=== PATIENT | female | born 1965 | race Caucasian/White ===

== ENCOUNTER → 2016-07-20 | Outpatient (CLI) | payer OTHER ==
[~2016-07-20] MED LIST: ALPRAZOLAM0.5 MG PO; BENTYL10 MG PO; DIFICID 200 MG200 MG PO; HORMONE COMPOUND; MULTIVITAMINS1 EACH PO; PHENERGAN 25 MG25 M1 PO; PROBIOTIC1 EAC1 PO; ZANTAC300 MG PO; ZYPREXA5 MG PO
[2016-07-20 14:16] LABS: HEMOGLOBIN 15.1 gm/dl (12.3-15.3); RED BLOOD COUNT 4.6 M/UL (4.00-5.10); WHITE BLOOD COUNT 11.3 K/UL (4.5-11.0)
[2016-07-20 14:32] LABS: BUN/CREATININE RATIO 9 (0-10)
== END ==
LOC: OPSV 12:43
PROVIDERS: Internal Medicine Infectious Disease
DX: M19.90 Unspecified osteoarthritis, unspecified site (principal); A04.7 Enterocolitis due to Clostridium difficile; B96.89 Other specified bacterial agents as the cause of diseases classified elsewhere; R19.7 Diarrhea, unspecified
CPT/HCPCS: 36415; 80053; 85025; G0463

== ENCOUNTER 2016-07-24 17:45 | Emergency (ER) | payer OTHER ==
[2016-07-24 18:45] LABS: HEMOGLOBIN 13.7 gm/dl (12.3-15.3); RED BLOOD COUNT 4.21 M/UL (4.00-5.10); WHITE BLOOD COUNT 10.9 K/UL (4.5-11.0)
[2016-07-24 19:06] LABS: BUN/CREATININE RATIO 11 (0-10)
== END 2016-07-25 00:40 | disposition home or self-care (01) ==
LOC: ER1 17:45
PROVIDERS: Emergency Medicine
DX: R10.84 Generalized abdominal pain (principal); R11.2 Nausea with vomiting, unspecified; B96.89 Other specified bacterial agents as the cause of diseases classified elsewhere; F17.210 Nicotine dependence, cigarettes, uncomplicated; Z88.5 Allergy status to narcotic agent; Z90.49 Acquired absence of other specified parts of digestive tract
CPT/HCPCS: 36415; 80053; 81001; 82550; 82553; 83605; 83690; 83874; 84484; 85025; 87086; 96361; 96374; 96375; 96376; 99284; J2270; J2405; J7050; Q9962

== ENCOUNTER → 2016-08-18 | Outpatient (CLI) | payer OTHER ==
[2016-08-18 14:03] LABS: HEMOGLOBIN 14.6 gm/dl (12.3-15.3); RED BLOOD COUNT 4.45 M/UL (4.00-5.10); WHITE BLOOD COUNT 11.8 K/UL (4.5-11.0)
[2016-08-18 14:18] LABS: BUN/CREATININE RATIO 13 (0-10)
== END ==
LOC: LAB 13:23
PROVIDERS: Family Medicine
DX: K52.9 Noninfective gastroenteritis and colitis, unspecified (principal); R20.2 Paresthesia of skin
CPT/HCPCS: 36415; 80053; 82607; 85025; 87045; 87046; 89055

== ENCOUNTER → 2016-09-17 | Outpatient (CLI) | payer OTHER | LOC: LBRF 12:35 | DX: K52.9 Noninfective gastroenteritis and colitis, unspecified (principal); R10.9 Unspecified abdominal pain ==

== ENCOUNTER → 2016-10-27 | Outpatient (CLI) | payer OTHER | LOC: LBRF 13:09 | DX: K52.9 Noninfective gastroenteritis and colitis, unspecified (principal); B96.89 Other specified bacterial agents as the cause of diseases classified elsewhere ==

== ENCOUNTER 2017-02-01 11:19 | Emergency (ER) | payer OTHER ==
[2017-02-01 13:26] LABS: HEMOGLOBIN 15.2 gm/dl (12.3-15.3); RED BLOOD COUNT 4.64 M/UL (4.00-5.10); WHITE BLOOD COUNT 13.8 K/UL (4.5-11.0)
[2017-02-01 13:52] LABS: BUN/CREATININE RATIO 11 (0-10)
== END 2017-02-01 15:42 | disposition home or self-care (01) ==
LOC: ER1 11:19
PROVIDERS: Emergency Medicine
DX: K57.92 Diverticulitis of intestine, part unspecified, without perforation or abscess without bleeding (principal); R91.1 Solitary pulmonary nodule; F17.200 Nicotine dependence, unspecified, uncomplicated; Z88.5 Allergy status to narcotic agent
CPT/HCPCS: 36415; 80053; 81001; 83690; 85025; 96374; 96375; 99284; J2270; J2405; J7050; Q9962

== ENCOUNTER → 2020-05-28 | Outpatient (CLI) | payer OTHER ==
[~2020-05-28] MED LIST changes: +AMBIEN5 MG PO; +AUGMENTIN 875-1 EACH PO; +CITRATE OF MAG296 ML PO; +COLACE 100MG C100 MG PO; +CYCLOBENZAPRINE10 MG PO; +DIPHENOXYLATE-1 EACH PO; +ELIQUIS2.5 MG PO; +ENOXAPARIN40 MG/0.4 SC; +FLAGYL500 MG PO; +GOLYTELY 40004000 ML PO; +HARD NAILS2500 MCG PO; +HYDROCODON-ACE1 EAC4 PO; +HYDROXYZINE PA100 MG PO; +IMODIUM CAP 2 MG2 MG PO; +MULTIPLE VITAM1 EAC1 PO; +ONDANSETRON2 MG/1 ML IV; +OXYCODONE HCL5 MG PO; +PAXIL10 MG PO; +PREDNISONE 50 M50 MG PO; +QUETIAPINE FUM100 MG PO; +TYLENOL 8 HOUR650 MG PO; +TYLENOL EXTRA500 MG PO; +XANAX2 MG PO; +ZOFRAN 4 MG TAB4 MG PO; +ZOFRAN4 MG PO; +ZYPREXA20 MG PO
== END ==
LOC: EMI 15:14
DX: M54.5 Low back pain (principal); M25.551 Pain in right hip; S22.089A Unspecified fracture of T11-T12 vertebra, initial encounter for closed fracture; M25.78 Osteophyte, vertebrae; M48.04 Spinal stenosis, thoracic region; M51.26 Other intervertebral disc displacement, lumbar region
CPT/HCPCS: 72158; A9577

== ENCOUNTER → 2020-06-13 | Outpatient (CLI) | payer OTHER | LOC: KOH-I 06-12 14:30 → EMI 16:30 | DX: M25.551 Pain in right hip (principal); M70.61 Trochanteric bursitis, right hip; R93.6 Abnormal findings on diagnostic imaging of limbs | CPT/HCPCS: 73721 ==

== ENCOUNTER 2020-06-18 07:41 | Inpatient (IN) | payer OTHER ==
[~2020-06-18] VITALS: Ht 170.2 cm; Wt 72.6 kg
[~2020-06-18 07:41] MED LIST changes: -AMBIEN5 MG PO; -CYCLOBENZAPRINE10 MG PO; -DIPHENOXYLATE-1 EACH PO; -ELIQUIS2.5 MG PO; -ENOXAPARIN40 MG/0.4 SC; -HARD NAILS2500 MCG PO; -HYDROCODON-ACE1 EAC4 PO; -HYDROXYZINE PA100 MG PO; -IMODIUM CAP 2 MG2 MG PO; -MULTIPLE VITAM1 EAC1 PO; -ONDANSETRON2 MG/1 ML IV; -OXYCODONE HCL5 MG PO; -PAXIL10 MG PO; -QUETIAPINE FUM100 MG PO; -TYLENOL 8 HOUR650 MG PO; -TYLENOL EXTRA500 MG PO; -XANAX2 MG PO; -ZOFRAN 4 MG TAB4 MG PO; -ZYPREXA20 MG PO
[2020-06-18 08:43] LABS: HEMOGLOBIN 12.6 gm/dl (12.3-15.3); RED BLOOD COUNT 4.42 M/UL (4.00-5.10); WHITE BLOOD COUNT 9.2 K/UL (4.5-11.0)
[2020-06-18 08:57] LABS: BUN/CREATININE RATIO 6 (0-10)
[2020-06-18] MEDS ORDERED: MULTIPLE VITAM1 EAC1 PO (09:20)
[2020-06-18] MEDS ORDERED: HARD NAILS2500 MCG PO (09:21)
[2020-06-18] MEDS ORDERED: TYLENOL EXTRA500 MG PO (09:21)
[2020-06-18] MEDS ORDERED: ZYPREXA20 MG PO (09:22)
[2020-06-18] MEDS ORDERED: DIPHENOXYLATE-1 EACH PO (09:23)
[2020-06-18] MEDS ORDERED: IMODIUM CAP 2 MG2 MG PO (09:24)
[2020-06-18] MEDS ORDERED: QUETIAPINE FUM100 MG PO (09:24)
[2020-06-18] MEDS ORDERED: HYDROXYZINE PA100 MG PO (09:25)
[2020-06-18] MEDS ORDERED: ZOFRAN 4 MG TAB4 MG PO (09:26)
[2020-06-18] MEDS ORDERED: CYCLOBENZAPRINE10 MG PO (09:26)
[2020-06-18] MEDS ORDERED: AMBIEN5 MG PO (09:26)
[2020-06-18] MEDS ORDERED: XANAX2 MG PO (09:27)
[2020-06-18 20:59] LABS: BUN/CREATININE RATIO 15 (0-10)
[2020-06-18 21:24] LABS: HEMOGLOBIN 13.2 gm/dl (12.3-15.3); RED BLOOD COUNT 4.52 M/UL (4.00-5.10)
[2020-06-19 03:15] LABS: HEMOGLOBIN 11.5 gm/dl (12.3-15.3)
[2020-06-19 03:23] LABS: RED BLOOD COUNT 3.84 M/UL (4.00-5.10)
[2020-06-19 03:30] LABS: BUN/CREATININE RATIO 16 (0-10)
[2020-06-19] MEDS ORDERED: ENOXAPARIN40 MG/0.4 SC (09:03)
== END 2020-06-19 15:51 | disposition home health service (06) | DRG 478 ==
LOC: OR 07:41 → M/S 14:48
PROVIDERS: ADMIT Orthopaedic Surgery
PROC: 0PU43JZ Supplement Thoracic Vertebra with Synthetic Substitute, Percutaneous Approach (ICD-10-PCS; 2020-06-18)
PROC: 0QH606Z Insertion of Intramedullary Internal Fixation Device into Right Upper Femur, Open Approach (ICD-10-PCS; 2020-06-18)
PROC: 0PB43ZX Excision of Thoracic Vertebra, Percutaneous Approach, Diagnostic (ICD-10-PCS; principal; 2020-06-18 11:30)
DX: S72.144A Nondisplaced intertrochanteric fracture of right femur, initial encounter for closed fracture (principal); M80.08XA Age-related osteoporosis with current pathological fracture, vertebra(e), initial encounter for fracture; Z91.81 History of falling; R29.6 Repeated falls; Z79.899 Other long term (current) drug therapy; Z88.5 Allergy status to narcotic agent
CPT/HCPCS: 36415; 71045; 73502; 76000; 80048; 81001; 85027; 85610; 85730; 86850; 86900; 86901; 93005; 97161; 97166; 97535; C1713; J0690; J1100; J1170; J1650; J2001; J2250; J2405; J2704; J2710; J2795; J3010; J3370; J7030; J7120; Q9962

== ENCOUNTER 2020-08-17 10:11 | Emergency (ER) | payer OTHER ==
[~2020-08-17 10:11] MED LIST changes: +AMBIEN5 MG PO; +CYCLOBENZAPRINE10 MG PO; +DIPHENOXYLATE-1 EACH PO; +ENOXAPARIN40 MG/0.4 SC; +HARD NAILS2500 MCG PO; +HYDROXYZINE PA100 MG PO; +IMODIUM CAP 2 MG2 MG PO; +MULTIPLE VITAM1 EAC1 PO; +QUETIAPINE FUM100 MG PO; +TYLENOL EXTRA500 MG PO; +XANAX2 MG PO; +ZOFRAN 4 MG TAB4 MG PO; +ZYPREXA20 MG PO
[2020-08-17 11:49] LABS: HEMOGLOBIN 12.2 gm/dl (12.3-15.3); RED BLOOD COUNT 3.91 M/UL (4.00-5.10); WHITE BLOOD COUNT 10.2 K/UL (4.5-11.0)
[2020-08-17 12:19] LABS: BUN/CREATININE RATIO 6 (0-10)
[2020-08-17] MEDS ORDERED: HYDROCODON-ACE1 EAC4 PO (16:04)
== END 2020-08-17 16:08 | disposition home or self-care (01) ==
LOC: ER1 10:11
PROVIDERS: Student in an Organized Health Care Education/Training Program
DX: M79.604 Pain in right leg (principal); M79.89 Other specified soft tissue disorders; J44.9 Chronic obstructive pulmonary disease, unspecified; Z90.49 Acquired absence of other specified parts of digestive tract; F17.210 Nicotine dependence, cigarettes, uncomplicated; Z88.5 Allergy status to narcotic agent; Z88.1 Allergy status to other antibiotic agents; Z79.899 Other long term (current) drug therapy; Z90.710 Acquired absence of both cervix and uterus
CPT/HCPCS: 73502; 73552; 73562; 80053; 81001; 82550; 82553; 83880; 84703; 85025; 96374; 99283; J2405

== ENCOUNTER → 2020-08-19 | Outpatient (CLI) | payer OTHER ==
[~2020-08-19] MED LIST changes: +ELIQUIS2.5 MG PO; +HYDROCODON-ACE1 EAC4 PO; +ONDANSETRON2 MG/1 ML IV; +OXYCODONE HCL5 MG PO; +PAXIL10 MG PO; +TYLENOL 8 HOUR650 MG PO
== END ==
LOC: US 13:05
DX: M79.89 Other specified soft tissue disorders (principal); R22.42 Localized swelling, mass and lump, left lower limb
CPT/HCPCS: 93971

== ENCOUNTER → 2020-08-29 | Outpatient (CLI) | payer OTHER | LOC: CT 09:30 | DX: M89.8X5 Other specified disorders of bone, thigh (principal); R19.7 Diarrhea, unspecified; B37.9 Candidiasis, unspecified | CPT/HCPCS: 73702; Q9967 ==

== ENCOUNTER → 2020-09-19 | Outpatient (CLI) | payer OTHER | LOC: KOH-I 08:00 | DX: T84.84XA Pain due to internal orthopedic prosthetic devices, implants and grafts, initial encounter (principal); S73.101A Unspecified sprain of right hip, initial encounter | CPT/HCPCS: 73721 ==

== ENCOUNTER 2020-09-27 11:15 | Inpatient (IN) | payer OTHER ==
[~2020-09-27] VITALS: Ht 170.2 cm; Wt 72.6 kg
[~2020-09-27 11:15] MED LIST changes: -ELIQUIS2.5 MG PO; -ONDANSETRON2 MG/1 ML IV; -OXYCODONE HCL5 MG PO; -PAXIL10 MG PO; -TYLENOL 8 HOUR650 MG PO
[2020-09-27 14:41] LABS: HEMOGLOBIN 12.1 gm/dl (12.3-15.3); RED BLOOD COUNT 3.95 M/UL (4.00-5.10); WHITE BLOOD COUNT 18.1 K/UL (4.5-11.0)
[2020-09-27 15:01] LABS: BUN/CREATININE RATIO 5 (0-10)
[2020-09-27] MEDS ORDERED: ONDANSETRON2 MG/1 ML IV (19:19)
[2020-09-27] MEDS ORDERED: PAXIL10 MG PO (19:29)
[2020-09-28 04:50] LABS: HEMOGLOBIN 11.3 gm/dl (12.3-15.3); RED BLOOD COUNT 3.73 M/UL (4.00-5.10); WHITE BLOOD COUNT 13.5 K/UL (4.5-11.0)
[2020-09-28 05:15] LABS: BUN/CREATININE RATIO 6 (0-10)
[2020-09-28 11:15] LABS: RED BLOOD COUNT 3.95 M/UL (4.00-5.10)
[2020-09-28 11:16] LABS: WHITE BLOOD COUNT 22.4 K/UL (4.5-11.0)
[2020-09-28 12:04] LABS: BUN/CREATININE RATIO 4 (0-10)
[2020-09-28 13:00] LABS: HEMOGLOBIN 12.4 gm/dl (12.3-15.3); RED BLOOD COUNT 4.06 M/UL (4.00-5.10); WHITE BLOOD COUNT 22.4 K/UL (4.5-11.0)
--- NOTE | 2020-09-28 14:09 | NUR ---
1142 PT RETURNED FROM SURGERY V/S T-97.5, HR - 82, O2 SAT 97% ON 2L/NC, BP 148/75. PT ALERT AND ORIENTED X 3, GAG REFLEX INTACT. LEFT HIP WITH TWO PERINIO DRESSING CLEAN DRY AND INCTACT. PEDAL PULSE 2+, PT CAN WIGGLE TOES. C/O PAIN 01/30. Chris ROSADO RN
[2020-09-29 06:57] LABS: RED BLOOD COUNT 3.68 M/UL (4.00-5.10)
[2020-09-29 07:17] LABS: WHITE BLOOD COUNT 15.7 K/UL (4.5-11.0)
[2020-09-29 07:21] LABS: BUN/CREATININE RATIO 10 (0-10)
[2020-09-30 06:29] LABS: HEMOGLOBIN 11.3 gm/dl (12.3-15.3); RED BLOOD COUNT 3.76 M/UL (4.00-5.10); WHITE BLOOD COUNT 12.9 K/UL (4.5-11.0)
[2020-09-30 06:59] LABS: BUN/CREATININE RATIO 20 (0-10)
--- NOTE | 2020-09-30 23:34 | NUR ---
@2215 CAME INTO ROOM AND NOTICED NG STAT LOCK OFF OF TUBE, RE-APPLIED STAT LOCK, TUBE NO LONGER DRAINING TO SUCTION, LISTENED FOR EPIGASTRIC AIR WITH STETHOSCOPE, COULD NOT HEAR ANY AIR SO ADVANCED TUBE UNTIL AIR WAS HEARD OVER EPIGASTRIC AREA AND STOMACH CONTENT RETURNED IN SUCTION TUBING, NOTIFIED MD AND RECIEVED ORDER FOR CHEST X-RAY TO CONFIRM PLACEMENT
[2020-10-01 03:31] LABS: HEMOGLOBIN 10.6 gm/dl (12.3-15.3); RED BLOOD COUNT 3.52 M/UL (4.00-5.10); WHITE BLOOD COUNT 12.6 K/UL (4.5-11.0)
[2020-10-01 03:59] LABS: BUN/CREATININE RATIO 22 (0-10)
--- NOTE | 2020-10-01 10:56 | NUR ---
REQUEST TO SEE PATIENT R/T PATIENT COMPLAINTS OF SICK OF HER STOMACH.
--- NOTE | 2020-10-01 11:33 | NUR ---
left message over the phone of dr. thibodeaux r/t to patient condition.
--- NOTE | 2020-10-01 11:40 | NUR ---
PATIENT SEEN PATIENT AND WILL ORDER MEDICINE
--- NOTE | 2020-10-01 12:18 | NUR ---
DR. BENJAMIN SEEN PATIENT AND RECEIVED ORDER
--- NOTE | 2020-10-02 03:05 | NUR ---
10/01/201919 SOME TREMORS NOTED TO [facility].
[2020-10-02 03:18] LABS: HEMOGLOBIN 10.5 gm/dl (12.3-15.3); RED BLOOD COUNT 3.48 M/UL (4.00-5.10)
[2020-10-02 03:55] LABS: BUN/CREATININE RATIO 18 (0-10)
[2020-10-03 03:41] LABS: HEMOGLOBIN 11.3 gm/dl (12.3-15.3); RED BLOOD COUNT 3.73 M/UL (4.00-5.10); WHITE BLOOD COUNT 13.7 K/UL (4.5-11.0)
[2020-10-03 04:04] LABS: BUN/CREATININE RATIO 16 (0-10)
[2020-10-04 00:51] LABS: HEMOGLOBIN 10.5 gm/dl (12.3-15.3); RED BLOOD COUNT 3.51 M/UL (4.00-5.10); WHITE BLOOD COUNT 11.3 K/UL (4.5-11.0)
[2020-10-04 01:06] LABS: BUN/CREATININE RATIO 10 (0-10)
[2020-10-05 05:59] LABS: RED BLOOD COUNT 3.67 M/UL (4.00-5.10); WHITE BLOOD COUNT 12.9 K/UL (4.5-11.0)
[2020-10-05 06:20] LABS: BUN/CREATININE RATIO 8 (0-10)
--- NOTE | 2020-10-05 19:21 | NUR ---
PATIENT STATES SHE HAS RASH ON BACK THAT IS NEW, PHYSICIAN IS AWARE SAID SHE WOULD TAKE A LOOK AT IT.
[2020-10-06 04:18] LABS: HEMOGLOBIN 11.3 gm/dl (12.3-15.3); RED BLOOD COUNT 3.81 M/UL (4.00-5.10); WHITE BLOOD COUNT 12.7 K/UL (4.5-11.0)
[2020-10-06 04:37] LABS: BUN/CREATININE RATIO 7 (0-10)
--- NOTE | 2020-10-06 10:16 | NUR ---
CALLED PROVIDER TO INFORM THEM PATIENT STATES SHE DOESN'T WANT TO DO THE IN AND OUT CATH Q6 HOURS ORDERED. SHE STATES IT IS PAINFUL. SHE WOULD LIKE TO HAVE A GUTIERREZ PLACED, AND DO BLADDER TRAINING UNTIL SHE IS ABLE TO VOID ON HER OWN.
[2020-10-07 04:23] LABS: HEMOGLOBIN 11.5 gm/dl (12.3-15.3); RED BLOOD COUNT 3.85 M/UL (4.00-5.10); WHITE BLOOD COUNT 11.2 K/UL (4.5-11.0)
[2020-10-07 04:39] LABS: BUN/CREATININE RATIO 6 (0-10)
--- NOTE | 2020-10-07 05:14 | NUR ---
PT REFUSED BOTH DOSES OF ZOSYN AT BEGINNING OF SHIFT, STATED THAT SHE SPOKE TO THE DOCTOR ABOUT IT. PATIENT EDUCATED ABOUT IMPORTANCE OF CONTINUEING ANITBIOTIC THERAPY BUT SAID NO- SHE CAN'T HANDLE BEING SICK FROM IT.
[2020-10-08 06:51] LABS: HEMOGLOBIN 11.7 gm/dl (12.3-15.3); RED BLOOD COUNT 3.89 M/UL (4.00-5.10); WHITE BLOOD COUNT 11.3 K/UL (4.5-11.0)
[2020-10-08 07:14] LABS: BUN/CREATININE RATIO 6 (0-10)
[2020-10-10 04:52] LABS: HEMOGLOBIN 10.9 gm/dl (12.3-15.3); RED BLOOD COUNT 3.68 M/UL (4.00-5.10); WHITE BLOOD COUNT 10.5 K/UL (4.5-11.0)
[2020-10-10 07:54] LABS: BUN/CREATININE RATIO 9 (0-10)
[2020-10-10] MEDS ORDERED: OXYCODONE HCL5 MG PO (11:12)
[2020-10-10] MEDS ORDERED: TYLENOL 8 HOUR650 MG PO (11:12)
[2020-10-10] MEDS ORDERED: XANAX2 MG PO (11:12)
--- NOTE | 2020-10-10 18:47 | NUR ---
SPOKE WITH OFELIA VARELA ( ) AT [facility]. SHE IS STILL AWAITING APPROVAL FROM [facility]. SPOKE WITH NASIR ( ) FROM [facility] AND PT REPORT FROM TODAY FAXED TO PER HIS REQUEST. REPORT CALLED TO DAVIDE @ [facility] PER OFELIA'S REQUEST. WILL HOLD PT UNTIL INSURANCE AUTH OBTAINED.
--- NOTE | 2020-10-10 20:29 | NUR ---
2004 [facility] CALLED ME TO LET ME KNOW THAT THE PATIENT'S INSURANCE HAD BEEN APPROVED FOR TRANSFER TO HER FACILITY. PATIENT IS GOING TO BE TRAVELING BY PRIVATE AUTOMOBILE TO THE FACILITY AND DAY SHIFT RN LET ME KNOW THAT HER MOTHER IS SUPPOSED TO BE THE ONE TO TAKE HER WHEN HER INSURANCE APPROVED THE FACILITY. 2009 AFTER REVIEWING PATIENT'S CHART, THERE IS NO PHONE NUMBER FOR HER MOTHER AVAILABLE. I ASKED THE PATIENT FOR HER MOTHER'S PHONE NUMBER AND SHE GAVE ME [phone] BUT SHE EXPRESSED THAT SHE WOULD NOT BE ABLE TO DRIVE RIGHT NOW CONSIDERING IT WAS ALMOST DARK AND HER MOTHER WAS 78. PATIENT ALSO EXPRESSED THAT HER MOTHER WOULD BE UPSET FOR SOMEONE CALLING HER THIS LATE. I EXPLAINED TO THE PATIENT THAT WITH IT BEING TUESDAY EVENING, IF WE DID NOT GET HER TO THE FACILITY [facility], SHE WOULD PROBABLY BE HERE UNTIL TUESDAY AND SHE MAY OR MAY NOT HAVE A BED. PATIENT STATED THIS WAS FINE. I ASKED THE PATIENT IF THERE WAS ANYONE ELSE THAT I COULD CALL OR ANY OTHER NUMBER TO REACH HER MOTHER AND SHE STATED NO FOR BOTH OF THOSE. SHE SAID SHE HAD A FIANCE BUT HE WAS OUT OF TOWN FOR THE WEEKEND AND WOULD NOT BE BACK UNTIL TUESDAY. 2019 NOTIFIED KELSIE KNOCKOUT MACHINE OPERATOR OF THE SITUATION. KELSIE STATED THAT THE PATIENT WOULD NOT BE A CANDIDATE FOR A CAB DUE TO HER MEDICAL CONDITION AND THAT THERE WASN'T REALLY ANYTHING WE COULD DO AT THE MOMENT TO GET HER TO THE FACILITY IF HER MOM OR SOMEONE ELSE WOULD NOT BE ABLE TO COME GET HER. DR DODD HAS BEEN AWARE OF THE SITUATION WITH THIS PATIENT'S DISCHARGE EARLIER IN THE DAY. 2026 TRIED TO NOTIFY DAVIDE ADMISSIONS NURSE AT [facility] OF THE SITUATION, NO ANSWER. WILL ATTEMPT TO CALL BACK LATER TO GIVE AN UPDATE THAT THE PATIENT WILL NOT BE COMING TO [facility].
[2020-10-11 06:54] LABS: BUN/CREATININE RATIO 9 (0-10)
[2020-10-11] MEDS ORDERED: ELIQUIS2.5 MG PO (14:44)
[2020-10-11] MEDS ORDERED: ZOFRAN 4 MG TAB4 MG PO (16:20)
== END 2020-10-11 17:03 | disposition home health service (06) | DRG 480 ==
LOC: ER1 11:15 → CDU 14:46 → M/S 14:46
PROVIDERS: Internal Medicine; Orthopaedic Surgery; Physician Assistant; Physician Assistant Medical; ADMIT Internal Medicine
PROC: 0QS706Z Reposition Left Upper Femur with Intramedullary Internal Fixation Device, Open Approach (ICD-10-PCS; principal; 2020-09-28 10:10)
DX: M80.052A Age-related osteoporosis with current pathological fracture, left femur, initial encounter for fracture (principal); J69.0 Pneumonitis due to inhalation of food and vomit; K56.7 Ileus, unspecified; F13.20 Sedative, hypnotic or anxiolytic dependence, uncomplicated; J90 Pleural effusion, not elsewhere classified; Z20.822 Contact with and (suspected) exposure to COVID-19; E88.09 Other disorders of plasma-protein metabolism, not elsewhere classified; F41.9 Anxiety disorder, unspecified; L74.0 Miliaria rubra; K56.41 Fecal impaction; J44.9 Chronic obstructive pulmonary disease, unspecified; I10 Essential (primary) hypertension; R33.9 Retention of urine, unspecified; E87.6 Hypokalemia; F17.210 Nicotine dependence, cigarettes, uncomplicated; R04.0 Epistaxis; Z90.49 Acquired absence of other specified parts of digestive tract; Z79.01 Long term (current) use of anticoagulants; Z90.710 Acquired absence of both cervix and uterus; Z88.8 Allergy status to other drugs, medicaments and biological substances; Z88.6 Allergy status to analgesic agent; Z82.49 Family history of ischemic heart disease and other diseases of the circulatory system; Z83.3 Family history of diabetes mellitus
CPT/HCPCS: 36415; 51702; 71045; 71046; 73502; 73552; 73700; 74018; 74250; 76000; 80048; 80053; 81001; 83735; 84100; 84132; 85007; 85025; 85027; 85610; 86850; 86900; 86901; 87040; 87081; 87086; 88342; 93005; 94664; 94760; 96374; 97110; 97110-GP-CQ; 97116-GP-CQ; 97162; 97166; 97530; 97530-GP-CQ; 97535; 99284; C1713; C9113; J0171; J0360; J0690; J1100; J1650; J2001; J2060; J2250; J2270; J2405; J2543; J2550; J2704; J2765; J2795; J3010; J3480; J7030; J7050; J7120; P9047; Q9963; Q9967; U0002

== ENCOUNTER 2021-01-31 12:03 | Emergency (ER) | payer OTHER ==
[~2021-01-31 12:03] MED LIST changes: +ELIQUIS2.5 MG PO; +ONDANSETRON2 MG/1 ML IV; +OXYCODONE HCL5 MG PO; +PAXIL10 MG PO; +TYLENOL 8 HOUR650 MG PO
[2021-01-31 14:42] LABS: HEMOGLOBIN 12.4 gm/dl (12.3-15.3); RED BLOOD COUNT 4.3 M/UL (4.00-5.10); WHITE BLOOD COUNT 8.4 K/UL (4.5-11.0)
[2021-01-31 15:01] LABS: BUN/CREATININE RATIO 6 (0-10)
== END 2021-01-31 15:33 | disposition home or self-care (01) ==
LOC: ER1 12:03
PROVIDERS: Emergency Medicine
DX: M54.5 Low back pain (principal); J44.9 Chronic obstructive pulmonary disease, unspecified; F17.210 Nicotine dependence, cigarettes, uncomplicated; Z90.49 Acquired absence of other specified parts of digestive tract; Z90.710 Acquired absence of both cervix and uterus
CPT/HCPCS: 72131; 72170; 73552; 80053; 81001; 85025; 87086; 99284

== ENCOUNTER → 2021-02-06 | Outpatient (CLI) | payer OTHER ==
[2021-02-06 10:31] LABS: BUN/CREATININE RATIO 6 (0-10)
== END ==
LOC: US 09:36 → ECHO 12:30
PROVIDERS: Internal Medicine Cardiovascular Disease
DX: R60.9 Edema, unspecified (principal); M79.605 Pain in left leg; M79.604 Pain in right leg
CPT/HCPCS: ECHO; 36415; 80053; 93306; 93925; 93970

== ENCOUNTER 2021-03-21 09:06 | Emergency (ER) | payer OTHER ==
[2021-03-21 09:40] LABS: HEMOGLOBIN 12.1 gm/dl (12.3-15.3); RED BLOOD COUNT 4.01 M/UL (4.00-5.10); WHITE BLOOD COUNT 13.7 K/UL (4.5-11.0)
[2021-03-21 10:10] LABS: BUN/CREATININE RATIO 7 (0-10)
[2021-03-21] MEDS ORDERED: PHENERGAN 25 MG25 M1 PO (15:04)
[2021-03-21] MEDS ORDERED: HYDROCODON-ACE1 EAC4 PO (15:04)
[2021-03-21] MEDS ORDERED: AUGMENTIN 875-1 EACH PO (15:04)
== END 2021-03-21 15:19 | disposition home or self-care (01) ==
LOC: ER1 09:06
PROVIDERS: Student in an Organized Health Care Education/Training Program
DX: I88.0 Nonspecific mesenteric lymphadenitis (principal); K65.1 Peritoneal abscess; R11.2 Nausea with vomiting, unspecified; J44.9 Chronic obstructive pulmonary disease, unspecified; Z88.8 Allergy status to other drugs, medicaments and biological substances; Z88.6 Allergy status to analgesic agent; Z87.891 Personal history of nicotine dependence
CPT/HCPCS: 80053; 81001; 83690; 85025; 96374; 96375; 96376; 99284; J0696; J2270; J2405; Q9967

== ENCOUNTER → 2021-08-07 | Outpatient (CLI) | payer OTHER | LOC: KOH-I 12:32 | DX: M54.50 Low back pain, unspecified (principal); M47.816 Spondylosis without myelopathy or radiculopathy, lumbar region | CPT/HCPCS: 72100 ==

== ENCOUNTER 2021-09-26 09:02 | Emergency (ER) | payer OTHER ==
[2021-09-26 10:22] LABS: HEMOGLOBIN 15.4 gm/dl (12.3-15.3); RED BLOOD COUNT 5.03 M/UL (4.00-5.10); WHITE BLOOD COUNT 5.2 K/UL (4.5-11.0)
[2021-09-26 10:56] LABS: BUN/CREATININE RATIO 14 (0-10)
[2021-09-26] MEDS ORDERED: HYDROCODON-ACE1 EAC2 PO (14:57)
== END 2021-09-26 18:04 | disposition home or self-care (01) ==
LOC: ER1 09:02
PROVIDERS: Emergency Medicine
DX: S22.41XA Multiple fractures of ribs, right side, initial encounter for closed fracture (principal); S22.20XA Unspecified fracture of sternum, initial encounter for closed fracture; S32.019A Unspecified fracture of first lumbar vertebra, initial encounter for closed fracture; S32.029A Unspecified fracture of second lumbar vertebra, initial encounter for closed fracture; F17.200 Nicotine dependence, unspecified, uncomplicated; I10 Essential (primary) hypertension; V49.40XA Driver injured in collision with unspecified motor vehicles in traffic accident, initial encounter; Y92.410 Unspecified street and highway as the place of occurrence of the external cause
CPT/HCPCS: 70450; 71260; 72125; 80053; 81001; 82550; 82553; 84484; 85025; 93005; 96374; 96375; 96376; 99284; J2270; J2405; Q9967

== ENCOUNTER → 2021-11-30 | Outpatient (CLI) | payer OTHER ==
[~2021-11-30] MED LIST changes: +HYDROCODON-ACE1 EAC2 PO
== END ==
LOC: KOH-I 10:46
DX: M54.50 Low back pain, unspecified (principal); R06.02 Shortness of breath; M47.814 Spondylosis without myelopathy or radiculopathy, thoracic region
CPT/HCPCS: 71046; 72100

== ENCOUNTER 2021-12-16 11:25 | Inpatient (IN) | payer OTHER ==
[~2021-12-16] VITALS: Ht 167.6 cm; Wt 90.0 kg
[2021-12-16 12:07] LABS: RED BLOOD COUNT 4.4 M/UL (4.00-5.10); WHITE BLOOD COUNT 14.9 K/UL (4.5-11.0)
== END 2021-12-16 19:04 | disposition left against medical advice (07) | DRG 871 ==
LOC: ER1 11:25 → CDU 15:38 → PROG CARE 17:12
PROVIDERS: Family Medicine; ADMIT Internal Medicine
PROC: 3E03329 Introduction of Other Anti-infective into Peripheral Vein, Percutaneous Approach (ICD-10-PCS; principal; 2021-12-16)
PROC: 5A09357 Assistance with Respiratory Ventilation, Less than 24 Consecutive Hours, Continuous Positive Airway Pressure (ICD-10-PCS; 2021-12-16)
DX: A41.9 Sepsis, unspecified organism (principal); J18.9 Pneumonia, unspecified organism; J96.01 Acute respiratory failure with hypoxia; Z20.822 Contact with and (suspected) exposure to COVID-19; J96.02 Acute respiratory failure with hypercapnia; M62.82 Rhabdomyolysis; N17.9 Acute kidney failure, unspecified; R65.20 Severe sepsis without septic shock; Z96.698 Presence of other orthopedic joint implants; F17.210 Nicotine dependence, cigarettes, uncomplicated; M25.551 Pain in right hip; W18.30XA Fall on same level, unspecified, initial encounter; M81.0 Age-related osteoporosis without current pathological fracture; J44.9 Chronic obstructive pulmonary disease, unspecified; Z53.21 Procedure and treatment not carried out due to patient leaving prior to being seen by health care provider; F41.9 Anxiety disorder, unspecified; Z87.19 Personal history of other diseases of the digestive system; Z90.49 Acquired absence of other specified parts of digestive tract; Z90.710 Acquired absence of both cervix and uterus; Z93.3 Colostomy status; Z88.8 Allergy status to other drugs, medicaments and biological substances; Z88.6 Allergy status to analgesic agent
CPT/HCPCS: 36600; 51701; 70450; 71045; 73502; 80053; 80307; 81001; 82550; 82553; 82803; 83605; 83690; 83735; 84439; 84443; 84484; 85025; 85610; 86850; 86900; 86901; 87040; 87086; 93005; 94640; 94660; 94760; 96361; 96374; 96375; 99285; G0480; J0696; J1956; J2930

== ENCOUNTER 2022-01-15 15:44 | Emergency (ER) | payer OTHER ==
[2022-01-15 16:10] LABS: HEMOGLOBIN 12.9 gm/dl (12.3-15.3); RED BLOOD COUNT 4.41 M/UL (4.00-5.10); WHITE BLOOD COUNT 12.5 K/UL (4.5-11.0)
[2022-01-15 16:30] LABS: BUN/CREATININE RATIO 15 (0-10)
== END 2022-01-16 10:55 | disposition home or self-care (01) ==
LOC: ER1 15:44
PROVIDERS: Emergency Medicine; Nurse Practitioner
DX: T50.901A Poisoning by unspecified drugs, medicaments and biological substances, accidental (unintentional), initial encounter (principal); F13.10 Sedative, hypnotic or anxiolytic abuse, uncomplicated; F11.10 Opioid abuse, uncomplicated; Z20.822 Contact with and (suspected) exposure to COVID-19; Z88.5 Allergy status to narcotic agent
CPT/HCPCS: 0240U; 51701; 70450; 71045; 73522; 80053; 80307; 81001; 82140; 82962; 83605; 85025; 87040; 87086; 93005; 99285; G0480